=== PATIENT | male | born 1970 | race Caucasian/White ===

== ENCOUNTER 2016-12-26 13:01 | Emergency (ER) | payer OTHER ==
[~2016-12-26] VITALS: Ht 170.2 cm; Wt 81.6 kg
[2016-12-26 13:59] VITALS: BP 170/60
== END 2016-12-26 13:59 | disposition other institution (70) ==
LOC: EDBD 13:01 → ED 13:01
DX: Z02.89 Encounter for other administrative examinations (principal); I10 Essential (primary) hypertension; E11.9 Type 2 diabetes mellitus without complications
CPT/HCPCS: 82962